=== PATIENT | male | born 1965 | race Caucasian/White ===

== ENCOUNTER 2016-05-31 13:29 | Emergency (ER) | payer OTHER ==
[~2016-05-31 13:29] MED LIST: ASPIRIN EC81 MG PO; NITROSTAT 0.40.4 MG SL
[2016-05-31 14:00] LABS: HEMOGLOBIN 16.7 gm/dl (14.0-17.5); RED BLOOD COUNT 5.43 M/UL (4.20-5.50); WHITE BLOOD COUNT 11.7 K/UL (4.5-11.0)
== END 2016-05-31 14:50 | disposition left against medical advice (07) ==
LOC: ER1 13:29
PROVIDERS: Emergency Medicine
DX: Z53.21 Procedure and treatment not carried out due to patient leaving prior to being seen by health care provider (principal)
CPT/HCPCS: 71010; 85025; 85379; 85610; 85730; 93005

== ENCOUNTER → 2020-02-22 | Outpatient (CLI) | payer OTHER ==
[~2020-02-22] MED LIST changes: +BUSPIRONE HCL10 MG PO; +FELDENE10 MG PO; +FENOFIBRATE160 MG PO; +FLOMAX0.4 MG PO; +IBU600 MG PO; +IBUPROFEN600 MG PO; +IMDUR ER TAB 3030 MG PO; +INDOMETHACIN50 MG PO; +LIPITOR TAB 1010 MG PO; +LOPRESSOR 25 MG25 MG PO; +MEDROL4 MG PO; +METFORMIN HCL500 MG PO; +NITROGLYCERIN0.4 MG SL; +NORCO 5-325 TA1 EACH PO; +NORCO 7.5-3251 EACH PO; +ONDANSETRON ODT4 MG PO; +PERCOCET 5/325 T1 EA PO; +PREDNISONE 50 M50 MG PO; +SERTRALINE HCL50 MG PO; +TAMSULOSIN HCL0.4 MG PO; +VISTARIL 25 MG25 MG PO; +Voltaren Gel 1 % TOP; +ZOFRAN ODT 4 MG4 MG PO
== END ==
LOC: KOH-I 08:00
DX: M47.22 Other spondylosis with radiculopathy, cervical region (principal); M48.061 Spinal stenosis, lumbar region without neurogenic claudication; M51.16 Intervertebral disc disorders with radiculopathy, lumbar region; M51.27 Other intervertebral disc displacement, lumbosacral region; M47.817 Spondylosis without myelopathy or radiculopathy, lumbosacral region; M48.07 Spinal stenosis, lumbosacral region; M47.818 Spondylosis without myelopathy or radiculopathy, sacral and sacrococcygeal region
CPT/HCPCS: 72148

== ENCOUNTER 2020-12-21 14:29 | Emergency (ER) | payer OTHER ==
[2020-12-21] MEDS ORDERED: CEPHALEXIN500 MG PO (15:20)
[2020-12-21] MEDS ORDERED: BACTRIM DS TAB1 EACH PO (15:20)
== END 2020-12-21 16:04 | disposition home or self-care (01) ==
LOC: ER1 14:29
DX: L02.415 Cutaneous abscess of right lower limb (principal); E78.5 Hyperlipidemia, unspecified; I10 Essential (primary) hypertension; E11.9 Type 2 diabetes mellitus without complications; F17.210 Nicotine dependence, cigarettes, uncomplicated
CPT/HCPCS: 10060; 99282

== ENCOUNTER → 2021-02-01 | Outpatient (CLI) | payer OTHER ==
[~2021-02-01] MED LIST changes: +BACTRIM DS TAB1 EACH PO; +CEPHALEXIN500 MG PO
[2021-02-01 13:32] LABS: HEMOGLOBIN 16.9 gm/dl (14.0-17.5); RED BLOOD COUNT 5.34 M/UL (4.20-5.50); WHITE BLOOD COUNT 11.3 K/UL (4.5-11.0)
[2021-02-01 13:55] LABS: BUN/CREATININE RATIO 13 (0-10)
== END ==
LOC: LAB 13:14
PROVIDERS: Internal Medicine Cardiovascular Disease
DX: I25.10 Atherosclerotic heart disease of native coronary artery without angina pectoris (principal)
CPT/HCPCS: 36415; 80053; 80061; 83735; 84443; 85025

== ENCOUNTER → 2021-02-04 | Outpatient (CLI) | payer OTHER | LOC: HEART 5 08:18 | DX: I25.10 Atherosclerotic heart disease of native coronary artery without angina pectoris (principal); R07.9 Chest pain, unspecified; Z95.5 Presence of coronary angioplasty implant and graft; I08.1 Rheumatic disorders of both mitral and tricuspid valves | CPT/HCPCS: 78452; 93306; A9502; J2785 ==